=== PATIENT | female | born 1955 | race Caucasian/White ===

== ENCOUNTER → 2019-06-21 | Outpatient (CLI) | payer OTHER ==
[~2019-06-21] MED LIST: ANAS1TAB PO; BIOT1TAB2 PO; FLUO60TA PO; METH500T10 PO; MULT-717 PO; PANT40TA3 PO
== END | disposition home or self-care (01) ==
LOC: STAR 07:38
PROVIDERS: ATTEND Orthopaedic Surgery
DX: Z01.818 Encounter for other preprocedural examination (principal); M25.561 Pain in right knee; M17.11 Unilateral primary osteoarthritis, right knee; S52.572A Other intraarticular fracture of lower end of left radius, initial encounter for closed fracture; M70.61 Trochanteric bursitis, right hip; M51.36 Other intervertebral disc degeneration, lumbar region; M17.12 Unilateral primary osteoarthritis, left knee; M54.5 Low back pain; M17.9 Osteoarthritis of knee, unspecified; M75.20 Bicipital tendinitis, unspecified shoulder; M75.100 Unspecified rotator cuff tear or rupture of unspecified shoulder, not specified as traumatic; Z96.659 Presence of unspecified artificial knee joint; Z96.652 Presence of left artificial knee joint; Z88.7 Allergy status to serum and vaccine
CPT/HCPCS: 93005